=== PATIENT | male | born 1955 | race Caucasian/White ===

== ENCOUNTER 2020-07-12 08:00 | Outpatient (CLI) | payer OTHER ==
[~2020-07-12 08:00] MED LIST: CELE200C PO; DORZ10DR27 EACHEYE; FERR325T16 PO; LATA2.5D2 EACHEYE; METH750T87 PO; PANT40TA6 PO; TRAM50TA2 PO
== END 2020-07-12 23:59 | disposition home or self-care (01) ==
LOC: ROC 08:00
PROVIDERS: ATTEND Radiology Radiation Oncology
DX: C34.12 Malignant neoplasm of upper lobe, left bronchus or lung (principal); D47.3 Essential (hemorrhagic) thrombocythemia; K21.9 Gastro-esophageal reflux disease without esophagitis; D50.9 Iron deficiency anemia, unspecified
CPT/HCPCS: 99214; G0463

== ENCOUNTER → 2020-07-21 | Outpatient (CLI) | payer OTHER | END | disposition home or self-care (01) | LOC: PETCFH 07:38 | PROVIDERS: ATTEND Internal Medicine Hematology & Oncology | DX: C34.12 Malignant neoplasm of upper lobe, left bronchus or lung (principal); R91.8 Other nonspecific abnormal finding of lung field | CPT/HCPCS: 78815; A9552 ==

== ENCOUNTER → 2020-09-21 | Outpatient (CLI) | payer OTHER ==
[~2020-09-21] MED LIST changes: +FERR324T23 PO; -FERR325T16 PO; +GADOTERATE 7.5 MMOL/15ML SYR ONE; +OXYC5TAB2 PO
== END | disposition home or self-care (01) ==
LOC: RAD 16:21
PROVIDERS: ATTEND Internal Medicine Hematology & Oncology
DX: Z51.12 Encounter for antineoplastic immunotherapy (principal); C67.9 Malignant neoplasm of bladder, unspecified; C78.00 Secondary malignant neoplasm of unspecified lung; G89.3 Neoplasm related pain (acute) (chronic); R25.1 Tremor, unspecified; Z79.899 Other long term (current) drug therapy
CPT/HCPCS: 70553; A9575

== ENCOUNTER → 2020-10-13 | Outpatient (CLI) | payer OTHER ==
[~2020-10-13] MED LIST changes: -GADOTERATE 7.5 MMOL/15ML SYR ONE
== END | disposition home or self-care (01) ==
LOC: ROC 09:00
PROVIDERS: ATTEND Radiology Radiation Oncology
DX: Z08 Encounter for follow-up examination after completed treatment for malignant neoplasm (principal); Z85.118 Personal history of other malignant neoplasm of bronchus and lung; G89.3 Neoplasm related pain (acute) (chronic); Z79.899 Other long term (current) drug therapy
CPT/HCPCS: 99213; G0463

== ENCOUNTER 2020-10-27 11:43 | Emergency (ER) | payer OTHER ==
[2020-10-27] MEDS ORDERED: SODIUM CHLORIDE FLUSH 10ML SYR IVF ONE (13:00)
--- NOTE | 2020-10-27 13:05 | NUR ---
PT. WAS SENT BY DR. RODRIGUEZ FOR EVALUATION OF FEVER AND AN ELEVATED WBC. PT. IS A & O X 4 WITH A GCS OF 15. PT. IS PALE/PINK WARM AND DRY. LUNGS ARE DIMINISHED IN THE BASES. PT.'S PUPILS ARE PERRLA. PT.'S 12 LEAD EKG WAS DONE AND HE HAS THE CP MONITOR IN PLACE. PT. IS ABLE TO MOVE ALL EXTREMITIES WNL. PULSES ARE +2 THROUGHOUT. PT.'S HOB IS ELEVATED GREATER THAN 30 DEGREES. VSS.
--- NOTE | 2020-10-27 13:17 | NUR ---
PT.'S REPORTS A DARK SPOT ON HIS STOMA SITE ON THE RIGHT LOWER QUADRANT.
[2020-10-27] MEDS ORDERED: OXYC10TA6 PO (13:20)
[2020-10-27] MEDS ORDERED: MORP15TA PO (13:21)
[2020-10-27 13:24] LABS: MEAN CORPUSCULAR HEMOGLOBIN 22.8 pg (27.5-34.5); MEAN CORPUSCULAR HGB CONC 31.5 g/dL (33.2-36.2); MEAN PLATELET VOLUME 7.2 fL (7.4-10.4); PLATELET COUNT 738 x10^3/uL (130-400); RED BLOOD COUNT 4.09 x10^6/uL (4.38-5.82); RED CELL DISTRIBUTION WIDTH 18.5 % (9.4-14.8)
[2020-10-27 13:25] LABS: ALANINE AMINOTRANSFERASE 42 U/L (12-78); ALBUMIN 2.1 g/dL (3.4-5.0); ANION GAP 7 mmol/L (5-15); CALCIUM 10.3 mg/dL (8.5-10.1); CHLORIDE 104 mmol/L (98-107)
[2020-10-27 13:28] LABS: ALKALINE PHOSPHATASE 195 U/L (45-117); BILIRUBIN,TOTAL 0.6 mg/dL (0.2-1.0); CREATININE 1.18 mg/dL (0.7-1.3); TOTAL PROTEIN 8.2 g/dL (6.4-8.2)
--- NOTE | 2020-10-27 13:40 | NUR ---
PT. WAS REPOSITIONED.
[2020-10-27 13:55] LABS: MICROSCOPIC INDICATED
[2020-10-27 14:05] LABS: BAND#(MANUAL) 0.16 x10^3/uL; BANDS%(MANUAL) 1 % (0-7); BASOS#(MANUAL) 0.32 x10^3/uL (0-0.1); BASOS% (MANUAL) 2 % (0-1); EOS#(MANUAL) 1.75 x10^3/uL (0.0-0.4); EOS% (MANUAL) 11 % (1-7); LYMPHS% (MANUAL) 5 % (22-44); METAMYELOCYTES# (MANUAL) 0.16 x10^3/uL (0-0); METAMYELOCYTES% (MANUAL) 1 % (0-1); MONOS#(MANUAL) 1.27 x10^3/uL (0.3-2.7); MONOS% (MANUAL) 8 % (2-9); SEG#(MANUAL) 11.45 x10^3/uL (1.8-6.8); SEGS% (MANUAL) 72 % (42-75)
[2020-10-27 14:06] LABS: ANISOCYTOSIS 1+; POLYCHROMASIA 1+
[2020-10-27 14:07] LABS: <PLATELET ESTIMATE> INCREASED; <PLT MORPHOLOGY> NORMAL PLT MORPH
--- NOTE | 2020-10-27 14:41 | NUR ---
DR SANTA SPOKE WITH DR RODRIGUEZ
--- NOTE | 2020-10-27 16:25 | NUR ---
PT TO CT.
[2020-10-27] MEDS ORDERED: OMNIPAQUE 350 MG/ML, 100ML BOTTLE ONE (16:45)
--- NOTE | 2020-10-27 17:36 | NUR ---
PT RESTING IN BED, AT BEDSIDE. PT REMAINS ON MONITORS, VSS. UP FOR ERMD RECHECK CT'S ARE RESULTED. CONT TO MONITOR.
--- NOTE | 2020-10-27 18:17 | NUR ---
DR. SANTA AT BEDSIDE FOR RECHECK.
--- NOTE | 2020-10-27 18:43 | NUR ---
PT RESTING IN BED. PT TO BE D/C PER ERMD, AWAITING D/C PAPERWORK.
--- NOTE | 2020-10-27 18:49 | NUR ---
REPORT TO OSBALDO FISHER.
[2020-10-27] MEDS ORDERED: OXYcodone/APAP 10/325MG TABLET ONE (19:02)
[2020-10-27 19:04] VITALS: BP 119/62
[2020-10-27] MEDS ORDERED: OXYcodone/APAP 10/325MG TABLET PO ONE (19:30)
== END 2020-10-27 19:12 | disposition home or self-care (01) ==
LOC: ED 14:37
DX: C67.9 Malignant neoplasm of bladder, unspecified (principal); D53.9 Nutritional anemia, unspecified; R50.9 Fever, unspecified; R94.31 Abnormal electrocardiogram [ECG] [EKG]; K21.9 Gastro-esophageal reflux disease without esophagitis; R07.89 Other chest pain; R10.2 Pelvic and perineal pain
CPT/HCPCS: 36415; 71045; 71275; 74177; 80053; 81001; 83605; 85025; 87040; 93005; 99285; Q9967

== ENCOUNTER 2020-11-09 13:04 | Outpatient (CLI) | payer OTHER ==
[~2020-11-09 13:04] MED LIST changes: +MORP15TA PO; +OXYC10TA6 PO
== END 2020-11-09 23:59 | disposition home or self-care (01) ==
LOC: WOUND 13:04
PROVIDERS: ATTEND Internal Medicine Cardiovascular Disease
DX: Z43.6 Encounter for attention to other artificial openings of urinary tract (principal); K21.9 Gastro-esophageal reflux disease without esophagitis; E78.5 Hyperlipidemia, unspecified; Q05.9 Spina bifida, unspecified; Z85.51 Personal history of malignant neoplasm of bladder; Z79.899 Other long term (current) drug therapy; Z85.118 Personal history of other malignant neoplasm of bronchus and lung
CPT/HCPCS: 99215

== ENCOUNTER → 2020-12-20 | Outpatient (CLI) | payer OTHER ==
[~2020-12-20] MED LIST changes: +DEXA4TAB66 PO; +DEXL60CA2 PO; +IBUP200C8 PO; +LORA10CA PO; +MAGN400O7 PO; +MORP-52 PO; +POLY17PO5 PO
== END | disposition home or self-care (01) ==
LOC: RAD 10:05
PROVIDERS: ATTEND Internal Medicine Hematology & Oncology
DX: C67.9 Malignant neoplasm of bladder, unspecified (principal)
CPT/HCPCS: 78306; A9503

== ENCOUNTER 2020-12-29 12:30 | Inpatient (IN) | payer OTHER ==
[~2020-12-29] VITALS: Ht 170.2 cm; Wt 68.4 kg
--- NOTE | 2020-12-29 12:56 | NUR ---
PT PRESENTS WITH C/O WOUND ON RIGHT FOOT, REPORTS WAS TREATED WITH ABX, ALSO C/O CHRONIC PAIN ON LEFT SHOULDER. 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
--- NOTE | 2020-12-29 13:00 | NUR ---
MED STUDENT AT BEDSIDE.
--- NOTE | 2020-12-29 13:07 | NUR ---
PT DECLINES TO WEAR GOWN, STATES HE IS FINALLY IN A COMFORTABLE POSITION. MED STUDENT STILL AT BEDSIDE.
[2020-12-29] MEDS ORDERED: SODIUM CHLORIDE 0.9% 1,000ML IVBOLUS ONE (14:00)
--- NOTE | 2020-12-29 14:11 | NUR ---
XRAY AND LAB AT BEDSIDE.
[2020-12-29 14:32] LABS: MEAN CORPUSCULAR HEMOGLOBIN 22.8 pg (27.5-34.5); MEAN CORPUSCULAR HGB CONC 31.4 g/dL (33.2-36.2); MEAN PLATELET VOLUME 7.2 fL (7.4-10.4); PLATELET COUNT 759 x10^3/uL (130-400); RED BLOOD COUNT 4.16 x10^6/uL (4.38-5.82); RED CELL DISTRIBUTION WIDTH 20.3 % (9.4-14.8)
[2020-12-29 14:43] LABS: ALANINE AMINOTRANSFERASE 31 U/L (12-78); ALBUMIN 1.8 g/dL (3.4-5.0); ANION GAP 8 mmol/L (5-15); CALCIUM 9.3 mg/dL (8.5-10.1); CHLORIDE 107 mmol/L (98-107); CREATININE 0.82 mg/dL (0.7-1.3)
[2020-12-29 14:52] LABS: ALKALINE PHOSPHATASE 182 U/L (45-117); BILIRUBIN,TOTAL 0.5 mg/dL (0.2-1.0); TOTAL PROTEIN 8.1 g/dL (6.4-8.2)
[2020-12-29 15:08] LABS: BAND#(MANUAL) 0.75 x10^3/uL; BANDS%(MANUAL) 3 % (0-7); EOS% (MANUAL) 4 % (1-7); LYMPHS% (MANUAL) 2 % (22-44); MONOS#(MANUAL) 0.75 x10^3/uL (0.3-2.7); MONOS% (MANUAL) 3 % (2-9)
[2020-12-29 15:10] LABS: MICROCYTOSIS 1+; TOXIC GRAN 1+
[2020-12-29 15:11] LABS: ANISOCYTOSIS 2+; PMNS WITH VACUOLES 1+
[2020-12-29 15:12] LABS: <PLATELET ESTIMATE> INCREASED; <PLT MORPHOLOGY> NORMAL PLT MORPH; HYPOCHROMIA 1+; METAMYELOCYTES# (MANUAL) 0.25 x10^3/uL (0-0); METAMYELOCYTES% (MANUAL) 1 % (0-1); SEGS% (MANUAL) 87 % (42-75)
[2020-12-29] MEDS ORDERED: PHARMACOKINETIC CONSULTATION MC ONE ×2 (15:30→17:00)
[2020-12-29] MEDS ORDERED: VANCOMYCIN PER PHARMACY MC PRN ×2 (15:30→16:30)
--- NOTE | 2020-12-29 15:50 | NUR ---
DR. OLVERA AT BEDSIDE.
[2020-12-29] MEDS ORDERED: VANCOMYCIN 1,500 MG in SODIUM CHLORIDE 0.9% 250 ML IV ONE (16:00)
--- NOTE | 2020-12-29 16:00 | NUR ---
REPORT TO PARKER FISHER.
[2020-12-29 16:08] LABS: HCT (SEDRATE) 30.3 % (39.2-51.8)
[2020-12-29 16:12] LABS: MICROSCOPIC INDICATED
[2020-12-29] MEDS ORDERED: ONDANSETRON ODT 4 MG PO PRN (16:30)
[2020-12-29] MEDS ORDERED: BISACODYL 10 MG SUPP PR PRN (16:30)
[2020-12-29] MEDS ORDERED: CALCIUM CARBONATE 500 MG TAB.CHEW PO PRN (16:30)
[2020-12-29] MEDS ORDERED: ACETAMINOPHEN 325 MG TABLET PO PRN (16:30)
[2020-12-29] MEDS ORDERED: ONDANSETRON 2MG/ML, 2ML IVPush PRN (16:30)
[2020-12-29] MEDS ORDERED: DOCUSATE 100 MG CAPSULE PO PRN (16:30)
[2020-12-29] MEDS ORDERED: PHARMACOKINETIC MONITORING MC PRN (17:00)
[2020-12-29] MEDS: PREGABALIN 25 MG CAPSULE PO SCH ×2 (17:02→22:23)
[2020-12-29] MEDS: CEFTRIAXONE 1,000 MG in DEXTROSE 5% 50 ML IVPB SCH (17:37)
[2020-12-29] MEDS: FERROUS GLUCONATE 324 MG TABLET PO SCH (17:37)
[2020-12-29] MEDS: SODIUM CHLORIDE 0.9% 1,000 ML IV SCH (17:37)
[2020-12-29] MEDS: OXYcodone IR 5MG TABLET PO PRN (17:37)
[2020-12-29 20:12] VITALS: BP 108/67
[2020-12-30 02:33] VITALS: BP 112/69
[2020-12-30 04:28] LABS: BASOPHILS % (AUTO) 0 % (0-1); EOSINOPHILS % (AUTO) 11 % (1-7); LYMPHOCYTES % (AUTO) 2 % (22-44); MEAN CORPUSCULAR HEMOGLOBIN 23.2 pg (27.5-34.5); MEAN PLATELET VOLUME 6.8 fL (7.4-10.4); MONOCYTES % (AUTO) 7 % (2-9); NEUTROPHILS % (AUTO) 80 % (42-75); PLATELET COUNT 599 x10^3/uL (130-400); RED BLOOD COUNT 3.23 x10^6/uL (4.38-5.82); RED CELL DISTRIBUTION WIDTH 20.4 % (9.4-14.8)
[2020-12-30 04:41] LABS: ALANINE AMINOTRANSFERASE 25 U/L (12-78); ALBUMIN 1.4 g/dL (3.4-5.0); ANION GAP 6 mmol/L (5-15); CALCIUM 8.3 mg/dL (8.5-10.1); CHLORIDE 110 mmol/L (98-107); CREATININE 0.74 mg/dL (0.7-1.3)
[2020-12-30 04:43] LABS: ALKALINE PHOSPHATASE 141 U/L (45-117); BILIRUBIN,TOTAL 0.4 mg/dL (0.2-1.0); TOTAL PROTEIN 6.5 g/dL (6.4-8.2)
[2020-12-30] MEDS: SODIUM CHLORIDE 0.9% 1,000 ML IV SCH (05:34)
[2020-12-30] MEDS: VANCOMYCIN 1,200 MG in SODIUM CHLORIDE 0.9% 250 ML IV SCH ×2 (05:34→18:21)
[2020-12-30] MEDS ORDERED: VANCOMYCIN 1,000 MG in SODIUM CHLORIDE 0.9% 100 ML IV SCH (06:00)
[2020-12-30 07:41] VITALS: BP 114/62
[2020-12-30] MEDS: FERROUS GLUCONATE 324 MG TABLET PO SCH ×2 (08:16→16:30)
[2020-12-30] MEDS: PANTOPRAZOLE 40MG TABLET PO SCH (08:16)
[2020-12-30] MEDS: PREGABALIN 25 MG CAPSULE PO SCH ×3 (08:52→21:43)
[2020-12-30] MEDS: ENOXAPARIN 40 MG/0.4 ML SQ SCH (11:07)
[2020-12-30 12:51] VITALS: BP 118/68
[2020-12-30] MEDS: OXYcodone IR 5MG TABLET PO PRN ×2 (13:11→19:53)
[2020-12-30] MEDS: CEFTRIAXONE 1,000 MG in DEXTROSE 5% 50 ML IVPB SCH (17:28)
[2020-12-30 18:59] VITALS: BP 113/64
[2020-12-31 00:44] VITALS: BP 127/69
[2020-12-31] MEDS: OXYcodone IR 5MG TABLET PO PRN ×4 (05:33→14:33)
[2020-12-31] MEDS: VANCOMYCIN 1,200 MG in SODIUM CHLORIDE 0.9% 250 ML IV SCH ×2 (05:34→21:43)
[2020-12-31 06:15] LABS: CREATININE 0.64 mg/dL (0.7-1.3)
[2020-12-31] MEDS: PREGABALIN 25 MG CAPSULE PO SCH ×3 (08:38→21:43)
[2020-12-31] MEDS: PANTOPRAZOLE 40MG TABLET PO SCH (08:38)
[2020-12-31] MEDS: ENOXAPARIN 40 MG/0.4 ML SQ SCH (08:39)
[2020-12-31] MEDS: FERROUS GLUCONATE 324 MG TABLET PO SCH ×2 (08:39→16:11)
[2020-12-31 14:26] VITALS: BP 113/66
[2020-12-31] MEDS ORDERED: GADOTERATE 7.5 MMOL/15ML SYR ONE (16:53)
[2020-12-31] MEDS: CEFTRIAXONE 1,000 MG in DEXTROSE 5% 50 ML IVPB SCH (18:07)
[2020-12-31 20:11] VITALS: BP 110/61
[2021-01-01 00:30] VITALS: BP 109/58
[2021-01-01 05:10] LABS: BASOPHILS % (AUTO) 1 % (0-1); EOSINOPHILS % (AUTO) 10 % (1-7); LYMPHOCYTES % (AUTO) 3 % (22-44); MEAN CORPUSCULAR HEMOGLOBIN 22.8 pg (27.5-34.5); MEAN CORPUSCULAR HGB CONC 31.2 g/dL (33.2-36.2); MEAN PLATELET VOLUME 7.2 fL (7.4-10.4); MONOCYTES % (AUTO) 8 % (2-9); NEUTROPHILS % (AUTO) 79 % (42-75); PLATELET COUNT 621 x10^3/uL (130-400); RED BLOOD COUNT 3.32 x10^6/uL (4.38-5.82); RED CELL DISTRIBUTION WIDTH 20.5 % (9.4-14.8)
[2021-01-01] MEDS: OXYcodone IR 5MG TABLET PO PRN ×4 (05:19→19:42)
[2021-01-01 05:23] LABS: ANION GAP 4 mmol/L (5-15); CALCIUM 8.7 mg/dL (8.5-10.1); CHLORIDE 109 mmol/L (98-107)
[2021-01-01 05:24] LABS: CREATININE 0.66 mg/dL (0.7-1.3)
[2021-01-01] MEDS: FERROUS GLUCONATE 324 MG TABLET PO SCH ×2 (07:59→17:56)
[2021-01-01] MEDS: PREGABALIN 25 MG CAPSULE PO SCH ×3 (07:59→20:47)
[2021-01-01] MEDS: PANTOPRAZOLE 40MG TABLET PO SCH (07:59)
[2021-01-01 08:02] VITALS: BP 119/61
[2021-01-01] MEDS: ENOXAPARIN 40 MG/0.4 ML SQ SCH (10:41)
[2021-01-01] MEDS: MORPHINE SULFATE 4 MG/ML, 1ML IVPush PRN (11:50)
[2021-01-01 13:41] VITALS: BP 105/62
[2021-01-01] MEDS: VANCOMYCIN 1,200 MG in SODIUM CHLORIDE 0.9% 250 ML IV SCH (16:00)
[2021-01-01] MEDS: CEFTRIAXONE 1,000 MG in DEXTROSE 5% 50 ML IVPB SCH (17:56)
[2021-01-01 18:54] VITALS: BP 116/70
[2021-01-01] MEDS: PREGABALIN 50 MG CAP PO SCH (20:45)
[2021-01-02 02:44] VITALS: BP 132/71
[2021-01-02 05:05] LABS: MEAN CORPUSCULAR HEMOGLOBIN 23.2 pg (27.5-34.5); MEAN CORPUSCULAR HGB CONC 31.9 g/dL (33.2-36.2); MEAN PLATELET VOLUME 7.1 fL (7.4-10.4); PLATELET COUNT 619 x10^3/uL (130-400); RED BLOOD COUNT 3.41 x10^6/uL (4.38-5.82); RED CELL DISTRIBUTION WIDTH 20.7 % (9.4-14.8)
[2021-01-02 05:15] LABS: ALANINE AMINOTRANSFERASE 22 U/L (12-78); ALBUMIN 1.4 g/dL (3.4-5.0); ANION GAP 6 mmol/L (5-15); CALCIUM 8.7 mg/dL (8.5-10.1); CHLORIDE 105 mmol/L (98-107)
[2021-01-02 05:17] LABS: ALKALINE PHOSPHATASE 135 U/L (45-117); BILIRUBIN,TOTAL 0.4 mg/dL (0.2-1.0); TOTAL PROTEIN 6.5 g/dL (6.4-8.2)
[2021-01-02] MEDS: OXYcodone IR 5MG TABLET PO PRN ×4 (05:34→20:20)
[2021-01-02 05:44] LABS: EOS#(MANUAL) 2.47 x10^3/uL (0.0-0.4); EOS% (MANUAL) 10 % (1-7); LYMPH#(MANUAL) 0.25 x10^3/uL (1-3.4); LYMPHS% (MANUAL) 1 % (22-44); MONOS#(MANUAL) 0.99 x10^3/uL (0.3-2.7); MONOS% (MANUAL) 4 % (2-9); SEGS% (MANUAL) 85 % (42-75)
[2021-01-02 05:45] LABS: <PLATELET ESTIMATE> INCREASED; <PLT MORPHOLOGY> NORMAL PLT MORPH; ANISOCYTOSIS 2+; HYPOCHROMIA 1+; MICROCYTOSIS 1+
[2021-01-02 06:32] VITALS: BP 108/64
[2021-01-02] MEDS: FERROUS GLUCONATE 324 MG TABLET PO SCH ×2 (07:57→16:46)
[2021-01-02] MEDS: PANTOPRAZOLE 40MG TABLET PO SCH (07:57)
[2021-01-02] MEDS: PREGABALIN 25 MG CAPSULE PO SCH ×2 (07:58→21:00)
[2021-01-02] MEDS: VANCOMYCIN 1,200 MG in SODIUM CHLORIDE 0.9% 250 ML IV SCH (10:03)
[2021-01-02] MEDS: ENOXAPARIN 40 MG/0.4 ML SQ SCH (10:04)
[2021-01-02 12:47] VITALS: BP 106/64
[2021-01-02] MEDS: CEFTRIAXONE 1,000 MG in DEXTROSE 5% 50 ML IVPB SCH (17:48)
[2021-01-02 19:58] VITALS: BP 118/70
[2021-01-02] MEDS: PREGABALIN 50 MG CAP PO SCH (21:31)
[2021-01-03 00:53] VITALS: BP 114/66
[2021-01-03] MEDS: VANCOMYCIN 1,200 MG in SODIUM CHLORIDE 0.9% 250 ML IV SCH ×2 (04:06→21:56)
[2021-01-03 04:32] LABS: BASOPHILS % (AUTO) 1 % (0-1); EOSINOPHILS % (AUTO) 12 % (1-7); LYMPHOCYTES % (AUTO) 3 % (22-44); MEAN CORPUSCULAR HEMOGLOBIN 22.8 pg (27.5-34.5); MEAN CORPUSCULAR HGB CONC 31.1 g/dL (33.2-36.2); MEAN PLATELET VOLUME 7.6 fL (7.4-10.4); MONOCYTES % (AUTO) 6 % (2-9); NEUTROPHILS % (AUTO) 79 % (42-75); PLATELET COUNT 618 x10^3/uL (130-400); RED BLOOD COUNT 3.34 x10^6/uL (4.38-5.82); RED CELL DISTRIBUTION WIDTH 20.2 % (9.4-14.8)
[2021-01-03 04:46] LABS: ANION GAP 8 mmol/L (5-15); CALCIUM 8.6 mg/dL (8.5-10.1); CHLORIDE 104 mmol/L (98-107); CREATININE 0.73 mg/dL (0.7-1.3)
[2021-01-03 06:37] VITALS: BP 103/50
[2021-01-03] MEDS: FERROUS GLUCONATE 324 MG TABLET PO SCH ×2 (08:00→16:40)
[2021-01-03] MEDS: PREGABALIN 25 MG CAPSULE PO SCH ×2 (09:37→20:47)
[2021-01-03] MEDS: PANTOPRAZOLE 40MG TABLET PO SCH (09:38)
[2021-01-03] MEDS: ENOXAPARIN 40 MG/0.4 ML SQ SCH (09:39)
[2021-01-03] MEDS: OXYcodone IR 5MG TABLET PO PRN ×2 (12:11→23:52)
[2021-01-03 12:44] VITALS: BP 112/64
[2021-01-03] MEDS: MORPHINE SULFATE 4 MG/ML, 1ML IVPush PRN (13:29)
[2021-01-03] MEDS ORDERED: LORazepam 2 MG/ML, 1ML IVPush PRN (16:30)
[2021-01-03] MEDS ORDERED: FENTANYL 50 MCG PATCH TD SCH (16:30)
[2021-01-03] MEDS: CEFTRIAXONE 1,000 MG in DEXTROSE 5% 50 ML IVPB SCH (17:41)
[2021-01-03 18:54] VITALS: BP 107/56
[2021-01-03] MEDS: PREGABALIN 50 MG CAP PO SCH (20:47)
[2021-01-04 00:12] VITALS: BP 113/67
[2021-01-04 06:17] VITALS: BP 96/53
[2021-01-04] MEDS: PREGABALIN 25 MG CAPSULE PO SCH ×2 (08:00→21:07)
[2021-01-04] MEDS: FERROUS GLUCONATE 324 MG TABLET PO SCH ×2 (08:00→17:00)
[2021-01-04] MEDS: PANTOPRAZOLE 40MG TABLET PO SCH (08:01)
[2021-01-04] MEDS: ENOXAPARIN 40 MG/0.4 ML SQ SCH (09:59)
[2021-01-04] MEDS: OXYcodone IR 5MG TABLET PO PRN ×2 (10:00→19:30)
[2021-01-04] MEDS: MORPHINE SULFATE 4 MG/ML, 1ML IVPush PRN (13:21)
[2021-01-04 13:23] VITALS: BP 113/53
[2021-01-04] MEDS: VANCOMYCIN 1,200 MG in SODIUM CHLORIDE 0.9% 250 ML IV SCH (15:30)
[2021-01-04] MEDS: CEFTRIAXONE 1,000 MG in DEXTROSE 5% 50 ML IVPB SCH (17:08)
[2021-01-04 19:13] VITALS: BP 107/62
[2021-01-04] MEDS: PREGABALIN 50 MG CAP PO SCH (21:13)
[2021-01-05 00:24] VITALS: BP 102/55
[2021-01-05 07:20] VITALS: BP 108/58
[2021-01-05] MEDS: PREGABALIN 25 MG CAPSULE PO SCH ×2 (07:56→20:26)
[2021-01-05] MEDS: FERROUS GLUCONATE 324 MG TABLET PO SCH ×2 (07:56→17:34)
[2021-01-05] MEDS: PANTOPRAZOLE 40MG TABLET PO SCH (07:56)
[2021-01-05] MEDS: OXYcodone IR 5MG TABLET PO PRN ×3 (07:57→18:23)
[2021-01-05] MEDS: ENOXAPARIN 40 MG/0.4 ML SQ SCH (10:09)
[2021-01-05] MEDS: VANCOMYCIN 1,200 MG in SODIUM CHLORIDE 0.9% 250 ML IV SCH (10:09)
[2021-01-05] MEDS: MORPHINE SULFATE 4 MG/ML, 1ML IVPush PRN (10:57)
[2021-01-05] MEDS ORDERED: FENTANYL 25 MCG PATCH TD SCH (13:00)
[2021-01-05] MEDS ORDERED: FENTANYL 75 MCG PATCH TD SCH (13:30)
[2021-01-05 13:39] VITALS: BP 99/52
[2021-01-05] MEDS: CEFTRIAXONE 1,000 MG in DEXTROSE 5% 50 ML IVPB SCH (17:34)
[2021-01-05 19:24] VITALS: BP 91/52
[2021-01-05] MEDS: PREGABALIN 50 MG CAP PO SCH (20:25)
[2021-01-06 00:31] VITALS: BP 131/68
[2021-01-06] MEDS: OXYcodone IR 5MG TABLET PO PRN ×3 (00:40→14:36)
[2021-01-06] MEDS: VANCOMYCIN 1,200 MG in SODIUM CHLORIDE 0.9% 250 ML IV SCH (04:03)
[2021-01-06 06:17] VITALS: BP 112/61
[2021-01-06] MEDS: PREGABALIN 25 MG CAPSULE PO SCH (09:58)
[2021-01-06] MEDS: FERROUS GLUCONATE 324 MG TABLET PO SCH (09:58)
[2021-01-06] MEDS: PANTOPRAZOLE 40MG TABLET PO SCH (09:58)
[2021-01-06] MEDS: ENOXAPARIN 40 MG/0.4 ML SQ SCH (09:59)
[2021-01-06] MEDS ORDERED: SIMETHICONE 80 MG CHEW TAB PO PRN (10:30)
[2021-01-06] MEDS ORDERED: morphine SULFATE ORAL.CONC 20 MG/ML PO PRN (10:30)
[2021-01-06] MEDS ORDERED: PREG25CA PO (12:52)
[2021-01-06] MEDS ORDERED: DOXY100C2 PO (12:52)
[2021-01-06] MEDS ORDERED: SIME80TA16 PO (12:52)
[2021-01-06] MEDS ORDERED: ONDA4TAB13 PO (12:52)
[2021-01-06] MEDS ORDERED: PREG50CA58 PO (12:52)
[2021-01-06] MEDS ORDERED: AMOX1TAB64 PO (12:52)
[2021-01-06] MEDS ORDERED: FENT1PAT77 TD (12:52)
[2021-01-06] MEDS ORDERED: MORP100S3 PO (12:52)
[2021-01-06] MEDS ORDERED: OXYC5TAB98 PO (12:52)
[2021-01-06 14:35] VITALS: BP 107/62
[2021-01-06] MEDS ORDERED: FENTANYL REMOVE PATCH NOTE XX SCH (16:30)
== END 2021-01-06 15:23 | disposition hospice, home (50) | DRG 872 ==
LOC: ED 13:29 → EDIP 16:16 → 4NW 16:40
PROVIDERS: ADMIT Internal Medicine; ATTEND Internal Medicine
DX: A41.9 Sepsis, unspecified organism (principal); L03.115 Cellulitis of right lower limb; R64 Cachexia; D84.821 Immunodeficiency due to drugs; C78.00 Secondary malignant neoplasm of unspecified lung; F11.20 Opioid dependence, uncomplicated; M86.8X7 Other osteomyelitis, ankle and foot; C67.9 Malignant neoplasm of bladder, unspecified; E78.5 Hyperlipidemia, unspecified; I10 Essential (primary) hypertension; K21.9 Gastro-esophageal reflux disease without esophagitis; L89.159 Pressure ulcer of sacral region, unspecified stage; L89.619 Pressure ulcer of right heel, unspecified stage; R73.03 Prediabetes; T45.1X5A Adverse effect of antineoplastic and immunosuppressive drugs, initial encounter; Z51.5 Encounter for palliative care; Z74.01 Bed confinement status; Z82.49 Family history of ischemic heart disease and other diseases of the circulatory system; Z83.3 Family history of diabetes mellitus; Z91.048 Other nonmedicinal substance allergy status; G89.3 Neoplasm related pain (acute) (chronic); F41.9 Anxiety disorder, unspecified; D50.9 Iron deficiency anemia, unspecified; Y92.89 Other specified places as the place of occurrence of the external cause; Z68.23 Body mass index [BMI] 23.0-23.9, adult
CPT/HCPCS: 36415; 80048; 80053; 80202; 81001; 82565; 83605; 83735; 84100; 84145; 84550; 85025; 85651; 86140; 87040; 87086; 96361; 96374; G0378; J0696; J1650; J3370; A9575; J2270; J7030; J7050